=== PATIENT | female | born 1985 | race Caucasian/White ===

== ENCOUNTER → 2016-03-18 | Outpatient (CLI) | payer BC | LOC: M LAB 12:07 | PROVIDERS: ATTEND Obstetrics & Gynecology Reproductive Endocrinology | DX: N97.9 Female infertility, unspecified (principal) ==

== ENCOUNTER → 2016-05-13 | Outpatient (CLI) | payer BC ==
[2016-05-13 10:33] LABS: ESTRADIOL 50.2 PG/ML; PROGESTERONE 18.6 NG/ML
== END ==
LOC: M LAB 09:34
PROVIDERS: ATTEND Obstetrics & Gynecology Reproductive Endocrinology
DX: N97.9 Female infertility, unspecified (principal)

== ENCOUNTER → 2016-05-20 | Outpatient (CLI) | payer BC ==
[2016-05-20 10:33] LABS: HCG, SERUM QUANTITATIVE < 1.0 MIU/ML
[2016-05-21 19:22] LABS: PROGESTERONE 14.9 NG/ML
== END ==
LOC: M LAB 09:41
PROVIDERS: ATTEND Obstetrics & Gynecology Reproductive Endocrinology
DX: Z32.00 Encounter for pregnancy test, result unknown (principal)

== ENCOUNTER → 2016-06-20 | Outpatient (CLI) | payer BC ==
[2016-06-20 13:46] LABS: PROGESTERONE 111.2 NG/ML
== END ==
LOC: M LAB 09:59
PROVIDERS: ATTEND Obstetrics & Gynecology Reproductive Endocrinology
DX: N97.9 Female infertility, unspecified (principal)

== ENCOUNTER → 2016-06-24 | Outpatient (CLI) | payer BC ==
[2016-06-24 11:04] LABS: PROGESTERONE 55.6 NG/ML
[2016-06-24 11:06] LABS: ESTRADIOL 1833.5 PG/ML
== END ==
LOC: M LAB 09:51
PROVIDERS: ATTEND Obstetrics & Gynecology Reproductive Endocrinology
DX: Z32.01 Encounter for pregnancy test, result positive (principal)

== ENCOUNTER → 2016-06-26 | Outpatient (CLI) | payer BC | LOC: M LAB 10:22 | PROVIDERS: ATTEND Obstetrics & Gynecology Reproductive Endocrinology | DX: Z32.01 Encounter for pregnancy test, result positive (principal) ==

== ENCOUNTER → 2016-07-03 | Outpatient (CLI) | payer BC | LOC: M LAB 07:27 | PROVIDERS: ATTEND Obstetrics & Gynecology Reproductive Endocrinology | DX: N97.9 Female infertility, unspecified (principal) ==

== ENCOUNTER → 2016-09-25 | Outpatient (CLI) | payer BC | LOC: M LAB 08:56 | PROVIDERS: ATTEND Obstetrics & Gynecology Reproductive Endocrinology | DX: Z32.00 Encounter for pregnancy test, result unknown (principal) ==